=== PATIENT | male | born 1960 | race Caucasian/White ===

== ENCOUNTER 2017-01-20 09:57 | Emergency (ER) | payer OTHER ==
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
[2017-01-20] MEDS ORDERED: COZAAR (10:05)
[2017-01-20] MEDS ORDERED: FLOMAX0.4 M1 (10:05)
== END 2017-01-20 11:31 | disposition home or self-care (01) ==
LOC: SED 09:57
DX: S16.1XXA Strain of muscle, fascia and tendon at neck level, initial encounter (principal); S00.81XA Abrasion of other part of head, initial encounter; S60.812A Abrasion of left wrist, initial encounter; T15.91XA Foreign body on external eye, part unspecified, right eye, initial encounter; M54.9 Dorsalgia, unspecified; V43.52XA Car driver injured in collision with other type car in traffic accident, initial encounter
CPT/HCPCS: 65205; 72040; 99283